=== PATIENT | male | born 1985 | race Caucasian/White ===

== ENCOUNTER 2021-01-30 17:09 | Emergency (ER) | payer MEDICAID ==
[~2021-01-30] VITALS: Ht 185.4 cm; Wt 84.0 kg
[2021-01-30] MEDS ORDERED: KETOROLAC 15MG/ML VIAL IV ONE (17:45)
[2021-01-30] MEDS ORDERED: SODIUM CHLORIDE 0.9% 1,000 ML IV ONE (17:45)
[2021-01-30 18:23] LABS: BASOPHILS % 0.5 % (0.0-2.0); EOSINOPHILS % 1.9 % (0.0-5.0); HEMATOCRIT. 42.6 % (42.0-52.0); HEMOGLOBIN. 14.7 g/dL (14.0-18.0); LYMPHOCYTES % 29.5 % (20.0-50.0); MEAN CORPUSCULAR HEMOGLOBIN 29.5 pg (28.0-32.0); MEAN CORPUSCULAR VOLUME 85.1 fL (80.0-94.0); MEAN PLATELET VOLUME 7.3 fl (7.4-10.4); MONOCYTES % 9.3 % (2.0-8.0); NEUTROPHILS % 58.8 % (40.0-76.0); PLATELET 374 x1000/uL (130-400); RED CELL DISTRIBUTION WIDTH 13.3 % (11.6-14.6)
[2021-01-30 18:24] LABS: CHLORIDE 105 mEq/L (98-107)
[2021-01-30] MEDS ORDERED: ONDANSETRON HCL 4MG/2ML INJ IV ONE (18:30)
[2021-01-30 19:48] LABS: INR 1.1; PARTIAL THROMBOPLASTIN TIME 27.1 sec (23.4-31.0); PROTHROMBIN TIME 11.6 sec (9.6-11.0)
[2021-01-30 20:50] VITALS: BP 134/72
[2021-01-30] MEDS ORDERED: IOHEXOL-350 100 ML BOTTLE ONE (22:14)
== END 2021-01-30 21:15 | disposition home or self-care (01) ==
LOC: ER 17:09
DX: R51.9 Headache, unspecified (principal); I49.9 Cardiac arrhythmia, unspecified; Z88.2 Allergy status to sulfonamides; Z86.59 Personal history of other mental and behavioral disorders
CPT/HCPCS: 36415; 70496; 70498; 71045; 80053; 85025; 85610; 85730; 86850; 86900; 86901; 93005; 96361; 96374; 96375; 99285; J1885; J2405; J7030; Q9967; Z7610

== ENCOUNTER 2023-08-14 11:25 | Emergency (ER) | payer OTHER, MEDICAID ==
[~2023-08-14] VITALS: Ht 185.4 cm; Wt 86.0 kg
[2023-08-14 11:35] VITALS: O2SAT 99
[2023-08-14] MEDS ORDERED: BACITRACIN ZINC OINT UDPKT TOP NR (14:30)
[2023-08-14] MEDS ORDERED: LIDOCAINE HCL/PF 1% 10 MG/ML 5ML VIAL INFIL NR (14:30)
[2023-08-14] MEDS ORDERED: CEFTRIAXONE SODIUM 1 G/VIAL IM NR (14:30)
[2023-08-14] MEDS ORDERED: IBUPROFEN 600MG TABLET PO NR (14:31)
[2023-08-14] MEDS ORDERED: IBUP-2029 PO (14:37)
[2023-08-14] MEDS ORDERED: DOXY-456 MT (14:37)
[2023-08-14] MEDS ORDERED: TETANUS, DIPHTHERIA, PERTUSSIS VAC/PF 0.5ML (>10YR OLD) IM ONE ×2 (14:45→15:00)
[2023-08-14 15:39] VITALS: BP 123/88; PULSE 69; RESP 16; TEMP 98.9
== END 2023-08-14 15:40 | disposition home or self-care (01) ==
LOC: ER 11:25
DX: L02.214 Cutaneous abscess of groin (principal); R56.9 Unspecified convulsions; Z88.2 Allergy status to sulfonamides
CPT/HCPCS: 90715; 90471; 96372; 99284; J0696; J3490; Z7610